=== PATIENT | female | born 1935 | race Caucasian/White ===

== ENCOUNTER 2020-10-14 16:42 | Inpatient (IN) ==
[2020-10-14 17:38] LABS: ABS Lymphocytes 0.4 10^3/ul (1.0-4.8); ABS Monocytes 0.8 10^3/ul (0-0.8); ABS Neutrophils 10.8 10^3/ul (1.5-7.7); Hematocrit 43 % (35-47); Hemoglobin 14.5 g/dL (12.0-16.0); Lymphocyte % 3.4 %; Mean Corpuscular HGB Conc 34 g/dL (31-36); Mean Corpuscular Hemoglobin 30 pg (27-31); Mean Corpuscular Volume 88 fL (80-97); Mean Platelet Volume 8.2 fL (7.4-10.4); Platelet Count 210 10^3/uL (150-450); Red Blood Count 4.88 10^6 /uL (3.70-4.87); Red Cell Distribution Width 13 % (10-15)
[2020-10-14 17:48] LABS: ALT 53 U/L (7-52); AST 130 U/L (13-39); Albumin 3.7 g/dL (3.2-5.2); Albumin/Globulin Ratio 1.1 (1-3); Alkaline Phosphatase 90 U/L (34-104); Anion Gap 13 mmol/L (2-11); BUN/Creatinine Ratio 34.2 (8-20); Blood Urea Nitrogen 52 mg/dL (6-24); CO2 Carbon Dioxide 24 mmol/L (22-32); Calcium 10.1 mg/dL (8.6-10.3); Chloride 100 mmol/L (101-111); EGFR African American 39.3 (>60); EGFR Non-African American 32.5 (>60); Globulin 3.4 g/dL (2-4); Glucose 152 mg/dL (70-100); Magnesium 1.9 mg/dL (1.9-2.7); Potassium 3.6 mmol/L (3.5-5.0); Sodium 137 mmol/L (135-145); Total Protein 7.1 g/dL (6.4-8.9)
[2020-10-14 17:52] LABS: Troponin I 0.04 ng/mL (<0.03)
[2020-10-14] MEDS ORDERED: NS 0.9% 1000 ml BAG 1,000 ML IV ONE ×2 (17:52→19:14)
[2020-10-14] MEDS ORDERED: Iodixanol (CONTRAST) 320 MG/ML 100 ML SDV IV ONE (18:11)
[2020-10-14 18:34] LABS: Creatine Kinase 4568 U/L (10-223)
[2020-10-14 21:46] LABS: Troponin I 0.03 ng/mL (<0.03)
[2020-10-15] MEDS: NS 0.9% 1000 ml BAG 1,000 ML IV SCH ×2 (00:37→05:16)
[2020-10-15] MEDS ORDERED: Diltiazem IV push/loading dose 5 MG/ML 5 ML vial (25 mg) IV SLOW PU ONE (01:20)
[2020-10-15] MEDS ORDERED: Diltiazem (ADVAN VIAL) 100 MG/100 ML ADDV.BAG IV SCH (02:00)
[2020-10-15] MEDS: Nystatin TOP POWDER 15 GM BTL TOPICAL SCH ×4 (02:28→21:57)
[2020-10-15 03:29] LABS: Free T4 1.18 ng/dL (0.61-1.12)
[2020-10-15 05:55] LABS: ABS Lymphocytes 0.3 10^3/ul (1.0-4.8); ABS Monocytes 0.7 10^3/ul (0-0.8); ABS Neutrophils 7.9 10^3/ul (1.5-7.7); Eosinophil % 0.2 %; Hematocrit 36 % (35-47); Hemoglobin 11.9 g/dL (12.0-16.0); Lymphocyte % 3.4 %; Mean Corpuscular HGB Conc 33 g/dL (31-36); Mean Corpuscular Hemoglobin 29 pg (27-31); Mean Corpuscular Volume 89 fL (80-97); Mean Platelet Volume 8.4 fL (7.4-10.4); Platelet Count 152 10^3/uL (150-450); Red Blood Count 4.04 10^6 /uL (3.70-4.87); Red Cell Distribution Width 13 % (10-15); White Blood Count 8.9 10^3/uL (3.5-10.8)
[2020-10-15 06:15] LABS: Albumin 2.8 g/dL (3.2-5.2); BUN/Creatinine Ratio 45.1 (8-20); Calcium 8.9 mg/dL (8.6-10.3); EGFR African American 55.4 (>60); EGFR Non-African American 45.8 (>60); Globulin 2.8 g/dL (2-4); Potassium 3.6 mmol/L (3.5-5.0); Total Bilirubin 0.6 mg/dL (0.2-1.0); Total Protein 5.6 g/dL (6.4-8.9)
[2020-10-15] MEDS ORDERED: NS 0.9% 1000 ml BAG 1,000 ML IV SCH (06:28)
[2020-10-15] MEDS ORDERED: Perflutren Lipid Microsphere 3 ML VIAL ONE (08:20)
[2020-10-16] MEDS: NS 0.9% 1000 ml BAG 1,000 ML IV SCH ×2 (00:31→12:25)
[2020-10-16 05:31] LABS: ABS Eosinophils 0.2 10^3/ul (0-0.6); ABS Lymphocytes 0.6 10^3/ul (1.0-4.8); ABS Monocytes 0.8 10^3/ul (0-0.8); ABS Neutrophils 6.1 10^3/ul (1.5-7.7); Eosinophil % 2.2 %; Hematocrit 32 % (35-47); Hemoglobin 10.9 g/dL (12.0-16.0); Lymphocyte % 8.2 %; Mean Corpuscular HGB Conc 34 g/dL (31-36); Mean Corpuscular Hemoglobin 30 pg (27-31); Mean Corpuscular Volume 87 fL (80-97); Mean Platelet Volume 8.4 fL (7.4-10.4); Platelet Count 173 10^3/uL (150-450); Red Blood Count 3.69 10^6 /uL (3.70-4.87); Red Cell Distribution Width 13 % (10-15); White Blood Count 7.8 10^3/uL (3.5-10.8)
[2020-10-16 05:50] LABS: BUN/Creatinine Ratio 47.1 (8-20); Calcium 9.4 mg/dL (8.6-10.3); EGFR African American 51.2 (>60); EGFR Non-African American 42.3 (>60); Potassium 3.9 mmol/L (3.5-5.0)
[2020-10-16] MEDS: Nystatin TOP POWDER 15 GM BTL TOPICAL SCH ×3 (08:27→20:41)
[2020-10-17] MEDS: NS 0.9% 1000 ml BAG 1,000 ML IV SCH (02:55)
[2020-10-17 07:04] LABS: ABS Eosinophils 0.2 10^3/ul (0-0.6); ABS Lymphocytes 0.7 10^3/ul (1.0-4.8); ABS Monocytes 0.9 10^3/ul (0-0.8); ABS Neutrophils 5.3 10^3/ul (1.5-7.7); Eosinophil % 2.8 %; Hematocrit 33 % (35-47); Hemoglobin 11.1 g/dL (12.0-16.0); Lymphocyte % 10.2 %; Mean Corpuscular HGB Conc 34 g/dL (31-36); Mean Corpuscular Hemoglobin 30 pg (27-31); Mean Corpuscular Volume 90 fL (80-97); Mean Platelet Volume 7.9 fL (7.4-10.4); Nucleated Red Blood Cells % 0.1; Platelet Count 168 10^3/uL (150-450); Red Blood Count 3.71 10^6 /uL (3.70-4.87); Red Cell Distribution Width 13 % (10-15); White Blood Count 7.1 10^3/uL (3.5-10.8)
[2020-10-17 07:21] LABS: BUN/Creatinine Ratio 49.4 (8-20); Calcium 9.1 mg/dL (8.6-10.3); EGFR African American 79.1 (>60); EGFR Non-African American 65.3 (>60); Potassium 3.9 mmol/L (3.5-5.0)
[2020-10-17] MEDS: Nystatin TOP POWDER 15 GM BTL TOPICAL SCH ×3 (10:26→20:23)
[2020-10-17 17:59] LABS: Urine Appearance Cloudy; Urine Bilirubin Negative (Negative); Urine Blood 3+ (Negative); Urine Color Yellow; Urine Glucose Negative (Negative); Urine Ketones Negative (Negative); Urine Nitrite Negative (Negative); Urine Protein Negative (Negative); Urine Specific Gravity 1.018 (1.010-1.030); Urine Urobilinogen Negative (Negative)
[2020-10-17 18:32] LABS: Urine Bacteria 1+ (Absent); Urine Red Blood Cell 2+(6-10/hpf) (Absent); Urine Squamous Epithelial Cell Present (Absent); Urine White Blood Cell Trace(0-5/hpf) (Absent)
[2020-10-18] MEDS: Nystatin TOP POWDER 15 GM BTL TOPICAL SCH ×3 (09:24→20:33)
[2020-10-18] MEDS ORDERED: Albuterol/Ipratropium NEB.SOL (2.5/0.5 MG) 3 ML NEB.SOLN INH PRN (16:55)
[2020-10-19] MEDS: Nystatin TOP POWDER 15 GM BTL TOPICAL SCH (09:44)
[2020-10-19 12:48] VITALS: BP 163/59
== END 2020-10-19 13:45 | disposition home health service (06) | DRG 558 ==
LOC: ED 16:42 → MEDTELE 20:00
PROVIDERS: ADMIT Internal Medicine; ATTEND Internal Medicine

== ENCOUNTER 2024-08-06 13:52 | Inpatient (IN) ==
[2024-08-06] MEDS: cefTRIAXone 1 gm/50 mL D5W 1 GM/50 ML BAG IV ONE (15:00)
[2024-08-06] MEDS: Lactated Ringers 1000 ml BAG IV.FLUID IV ONE (15:03)
[2024-08-06 15:04] LABS: ABS Lymphocytes 0.2 10^3/uL (1.0-4.8); ABS Monocytes 0.6 10^3/uL (0.0-0.9); ABS Neutrophils 15.5 10^3/uL (1.5-7.6); ABS Nucleated RBC 0.03 10^3/ul; Hematocrit 39.7 % (35-45); Hemoglobin 12.5 g/dL (11.5-14.3); Lymphocyte % 1.1 %; Mean Corpuscular Hgb Conc 31.5 g/dL (31-36); Mean Platelet Volume 8.3 fL (7.5-11.2); Nucleated Red Blood Cells % 0.2 %/100WBC (0.0-0.8); Platelet Count 205 10^3/uL (150-450); Red Blood Count 4.32 10^6/uL (3.63-4.92); Red Cell Distribution Width 14.5 % (12-17); White Blood Count 16.3 10^3/uL (3.8-11.8)
[2024-08-06 15:06] LABS: Urine Appearance Turbid; Urine Bilirubin Negative (Negative); Urine Blood Negative (Negative); Urine Color Yellow; Urine Glucose Negative (Negative); Urine Ketones Trace (Negative); Urine Nitrite Negative (Negative); Urine Protein 1+ (>=30 mg/dL) (Negative); Urine Specific Gravity 1.025 (1.002-1.030); Urine Urobilinogen 1+ (Negative)
[2024-08-06 15:09] LABS: Activated Partial Thrombo Time 33.7 seconds (26.0-38.0); INR 1.38 (0.85-1.14)
[2024-08-06 15:23] LABS: Albumin 4.1 g/dL (3.2-5.2); Albumin/Globulin Ratio 1.2 (1-3); C Reactive Protein 174.74 mg/L (<8.01); Calcium 10.1 mg/dL (8.6-10.3); Creatinine, Serum 1.09 mg/dL (0.51-0.95); Globulin 3.3 g/dL (2-4); Potassium 5.4 mmol/L (3.5-5.0); Total Bilirubin 1.3 mg/dL (0.2-1.0); Total Protein 7.4 g/dL (6.4-8.9); eGFR CKD-EPI 48.6 (>60)
[2024-08-06 15:36] LABS: Urine Bacteria 2+ /HPF (Absent); Urine Red Blood Cell 2+(6-10/hpf) /HPF (0-Trace); Urine Squamous Epithelial Cell Present /HPF (Absent); Urine White Blood Cell 2+(11-20/hpf) /HPF (0-Trace)
[2024-08-06 16:29] LABS: High Sensitivity Troponin 1 Hr 50 pg/mL (<15)
[2024-08-06] MEDS: Furosemide 20 mg/2 ml IV VIAL IV SLOW PU ONE (16:52)
[2024-08-06] MEDS: Iodixanol 320 (CONTRAST) 100 ML SDV IV ONE (18:41)
[2024-08-06] MEDS ORDERED: Albuterol/Ipratropium NEB.SOL (2.5/0.5 MG) 3 ML NEB.SOLN INH PRN (21:29)
[2024-08-06] MEDS ORDERED: Acetaminophen IV 1 GM/100ML 1,000 MG/100 ML BAG IV PRN (23:06)
[2024-08-06 23:56] LABS: Calcium 8.1 mg/dL (8.6-10.3); Creatinine, Serum 0.83 mg/dL (0.51-0.95); Magnesium 1.6 mg/dL (1.9-2.7); Potassium 4.3 mmol/L (3.5-5.0); eGFR CKD-EPI 67.3 (>60)
[2024-08-07] MEDS: Magnesium Sulf 4 GM/100 ML IV 4,000 MG/100 ML BAG IVPB ONE (01:57)
[2024-08-07 09:37] LABS: ABS Lymphocytes 0.3 10^3/uL (1.0-4.8); ABS Monocytes 0.7 10^3/uL (0.0-0.9); ABS Neutrophils 11.7 10^3/uL (1.5-7.6); ABS Nucleated RBC 0.01 10^3/ul; Eosinophil % 0.1 %; Hematocrit 35.6 % (35-45); Hemoglobin 11.4 g/dL (11.5-14.3); Lymphocyte % 2.2 %; Mean Corpuscular Hemoglobin 29.7 pg (27-33); Mean Corpuscular Hgb Conc 32.1 g/dL (31-36); Mean Corpuscular Volume 92.5 fL (80-97); Mean Platelet Volume 8.1 fL (7.5-11.2); Nucleated Red Blood Cells % 0.1 %/100WBC (0.0-0.8); Platelet Count 151 10^3/uL (150-450); Red Blood Count 3.85 10^6/uL (3.63-4.92); Red Cell Distribution Width 14.4 % (12-17); White Blood Count 12.8 10^3/uL (3.8-11.8)
[2024-08-07 10:17] LABS: Albumin 3.3 g/dL (3.2-5.2); Albumin/Globulin Ratio 1.2 (1-3); Calcium 9.7 mg/dL (8.6-10.3); Creatinine, Serum 0.98 mg/dL (0.51-0.95); Globulin 2.7 g/dL (2-4); Magnesium 2.9 mg/dL (1.9-2.7); Potassium 4.9 mmol/L (3.5-5.0); Total Bilirubin 0.8 mg/dL (0.2-1.0); eGFR CKD-EPI 55.2 (>60)
[2024-08-07] MEDS: Nystatin TOP POWDER 15 GM BTL TOPICAL SCH (10:45)
[2024-08-07] MEDS: Aspirin EC 81 mg TAB.EC (enteric coated) PO SCH (10:48)
[2024-08-07] MEDS: Furosemide 20 mg/2 ml IV VIAL IV ONE (12:55)
[2024-08-07] MEDS ORDERED: cefTRIAXone 1 gm/50 mL D5W 1 GM/50 ML BAG IV SCH (13:00)
[2024-08-07] MEDS: cefTRIAXone 1 gm/50 mL D5W 1 GM/50 ML BAG IV SCH (13:01)
[2024-08-07] MEDS: Timolol 0.5% OPTH.SOL BTL LEFT EYE SCH (21:15)
[2024-08-07] MEDS: Timolol 0.5% OPTH.SOL BTL RIGHT EYE SCH (21:15)
[2024-08-08 06:23] LABS: Hemoglobin 11.1 g/dL (11.5-14.3); Mean Corpuscular Hemoglobin 29.5 pg (27-33); Mean Corpuscular Hgb Conc 31.8 g/dL (31-36); Mean Corpuscular Volume 92.7 fL (80-97); Mean Platelet Volume 8.3 fL (7.5-11.2); Platelet Count 158 10^3/uL (150-450); Red Blood Count 3.78 10^6/uL (3.63-4.92); Red Cell Distribution Width 14.4 % (12-17); White Blood Count 12.2 10^3/uL (3.8-11.8)
[2024-08-08 06:55] LABS: Calcium 9.8 mg/dL (8.6-10.3); Potassium 5.1 mmol/L (3.5-5.0); eGFR CKD-EPI 53.9 (>60)
[2024-08-08] MEDS: Sulfur Hexaflouride MICROSPHR 25 MG VIAL IV PRN (10:23)
[2024-08-08] MEDS: Furosemide 20 mg/2 ml IV VIAL IV ONE (13:26)
[2024-08-08] MEDS: Furosemide 40 mg/4 ml IV VIAL IV ONE (18:19)
[2024-08-09 06:49] LABS: Hematocrit 34.9 % (35-45); Hemoglobin 10.9 g/dL (11.5-14.3); Mean Corpuscular Hemoglobin 29.2 pg (27-33); Mean Corpuscular Hgb Conc 31.3 g/dL (31-36); Mean Corpuscular Volume 93.3 fL (80-97); Mean Platelet Volume 8.6 fL (7.5-11.2); Platelet Count 165 10^3/uL (150-450); Red Blood Count 3.74 10^6/uL (3.63-4.92); Red Cell Distribution Width 14.4 % (12-17); White Blood Count 11.9 10^3/uL (3.8-11.8)
[2024-08-09 07:09] LABS: Calcium 9.9 mg/dL (8.6-10.3); Creatinine, Serum 0.92 mg/dL (0.51-0.95); Potassium 5.2 mmol/L (3.5-5.0); eGFR CKD-EPI 59.5 (>60)
[2024-08-09 13:42] VITALS: BP 108/58
[2024-08-09] MEDS ORDERED: Senna TAB 8.6 mg TAB PO PRN (16:33)
[2024-08-09] MEDS ORDERED: Ondansetron 4 mg VIAL 2 MG/ML 2 ml VIAL IV PRN (16:33)
[2024-08-09] MEDS ORDERED: Haloperidol 5 mg/ml SDV IV/IM 5 MG/ML AMP IM PRN (16:33)
[2024-08-09] MEDS: Morphine 2 MG/ML SYRINGE IV PRN (17:32)
[2024-08-09] MEDS: LORazepam 2 mg VIAL 1 ml IV PUSH PRN (17:33)
[2024-08-09] MEDS: Morphine ORAL CONCENTRATE 5 MG/0.25 ML ORAL.SYRIN PO PRN (23:09)
[2024-08-10] MEDS: Morphine ORAL CONCENTRATE 5 MG/0.25 ML ORAL.SYRIN SL PRN ×2 (10:53→12:45)
== END 2024-08-10 15:48 | disposition expired | DRG 871 ==
LOC: ED 13:52 → EDHOLD 13:52 → MED 08-07 04:49 → SUATTDRO 08-08 12:55 → MED 08-09 23:10
PROVIDERS: ADMIT Student in an Organized Health Care Education/Training Program; ATTEND Hospitalist